=== PATIENT | male | born 1955 | race Caucasian/White ===

== ENCOUNTER → 2017-06-10 | Outpatient (CLI) | payer OTHER ==
[~2017-06-10] MED LIST: AMLO-114 PO; ASPEC325 PO; FRRG PO; HYDR25TA4 PO; LABE1TAB28 PO; LEVE1TAB57 PO; METF1000 PO; OXYC1TAB3 PO
[2017-06-10 13:01] LABS: ESTIMATED AVERAGE GLUCOSE 143 mg/dl; HA1C FLAG Normal (Normal)
[2017-06-10 13:05] LABS: BLOOD UREA NITROGEN 13 mg/dl (7-18); BUN/CREATININE RATIO 15.6 (10-20); CALCIUM 9.3 mg/dl (8.5-10.1); CARBON DIOXIDE 27 mmol/L (21-32); CHLORIDE 103 mmol/L (98-107); CHOLESTEROL 130 mg/dl (0-200); CREATININE 0.85 mg/dl (0.60-1.40); GLUCOSE 118 mg/dl (70-99); POTASSIUM 4.2 mmol/L (3.5-5.1); SODIUM 136 mmol/L (136-145)
[2017-06-10 13:08] LABS: CHOLESTEROL/HDL RATIO 2.5; HDL CHOLESTEROL 53 mg/dl; LDL CHOLESTEROL CALCULATED 61 mg/dl; TRIGLYCERIDES 82 mg/dl (0-150); VERY LOW DENSITY LIPOPROT CALC 16 mg/dl
--- NOTE | 2017-06-21 09:29 | CODING QUERY MEDICAL NECESSITY ---
SUPPORTING DIAGNOSIS NEEDED A supporting diagnosis is required for the test/procedure performed on this patient in order for us to be reimbursed by the patient's insurance. Please provide a supporting diagnosis for the following test/procedure listed below next to the test name along with your signature. *If there is no additional diagnosis for this patient that would support the following test/procedure please document that below next to the test/procedure. Test(s)/Procedure(s) that require a supporting diagnosis: * ([id number]) VITAMIN D ASSAY DIAGNOSIS: DATE OF SERVICE: 06/10/17 Provider Signature: Date: Thank you Jostin Can [facility] Information Management Once completed, please kindly fax back to [phone] For questions please call [phone]
== END | disposition home or self-care (01) ==
LOC: C.LABPVFM 10:06
PROVIDERS: ATTEND Nurse Practitioner
DX: I10 Essential (primary) hypertension (principal); E11.9 Type 2 diabetes mellitus without complications; R41.3 Other amnesia; G62.9 Polyneuropathy, unspecified; M79.1 Myalgia

== ENCOUNTER → 2017-12-23 | Outpatient (CLI) | payer OTHER ==
[2017-12-23 18:01] LABS: BLOOD UREA NITROGEN 18 mg/dl (7-18); CALCIUM 9.6 mg/dl (8.5-10.1); CARBON DIOXIDE 26 mmol/L (21-32); CREATININE 1.16 mg/dl (0.60-1.40); GLUCOSE 171 mg/dl (70-99); POTASSIUM 3.7 mmol/L (3.5-5.1); SODIUM 134 mmol/L (136-145)
[2017-12-24 06:42] LABS: HEMOGLOBIN A1C 7.7 % (4.5-5.6)
== END | disposition home or self-care (01) ==
LOC: C.LABPVFM 14:40
PROVIDERS: ATTEND Nurse Practitioner
DX: I10 Essential (primary) hypertension (principal); E11.9 Type 2 diabetes mellitus without complications

== ENCOUNTER 2018-01-17 04:58 | Inpatient (IN) | payer OTHER ==
[2018-01-06 08:01] VITALS: BMI 37.0
--- NOTE | 2018-01-06 08:46 | PAT Medication Instructions ---
Service Date Jan 06, 2018. Current Home Medication List Acetaminophen (Tylenol Arthritis Ext Rel), 1,300 MG PO Q8H PRN for Pain Amlodipine (Norvasc), 10 MG PO QAM Hydrochlorothiazide (Hctz), 25 MG PO QAM Labetalol (Normodyne), 400 MG PO QAM Labetalol (Normodyne), 200 MG PO QPM Metformin Hcl (Glucophage), 1,000 MG PO BID Medication Instructions For Your Scheduled Surgery - Hold the following medications the morning of surgery: Hydrochlorothiazide (Hctz), 25 MG PO QAM - Take the following medications the morning of surgery with a sip of water: Acetaminophen (Tylenol Arthritis Ext Rel), 1,300 MG PO Q8H PRN for Pain (if needed, can be taken up to four hours before surgery) Amlodipine (Norvasc), 10 MG PO QAM Labetalol (Normodyne), 400 MG PO QAM - Take the following medications as scheduled the night before surgery: Acetaminophen (Tylenol Arthritis Ext Rel), 1,300 MG PO Q8H PRN for Pain (if needed) Labetalol (Normodyne), 200 MG PO QPM Metformin Hcl (Glucophage), 1,000 MG PO BID If you have any questions please call us at [phone] or [phone] or [phone]
--- NOTE | 2018-01-06 09:26 | DIAGNOSTIC IMAGING REPORT ---
CHEST 2 VIEWS ROUTINE CLINICAL HISTORY: Preoperative evaluation. COMPARISON STUDY: Chest radiograph June 19, 2015. FINDINGS: Incidental note is made of an old left ninth rib fracture. Lung volumes are normal. There is no pneumothorax or pleural effusion. Pulmonary vascularity is normal. Cardiac size is normal. Mediastinal contours are normal. There is no consolidation. IMPRESSION: No acute cardiopulmonary findings. Electronically signed by: Kin Aburto M.D. 01/06/2018 9:25 AM Dictated Date/Time: 01/06/2018 9:24 AM
[2018-01-06 10:19] LABS: BASO % 0.7 %; BASO ABS # 0.05 K/uL (0-0.2); EOS % 1.6 %; EOS ABS # 0.12 K/uL (0-0.5); HEMATOCRIT 43.7 % (42-52); HEMOGLOBIN 15.7 g/dL (14.0-18.0); IG# 0.02 K/uL (0.00-0.02); LYMPH ABS # 1.65 K/uL (1.2-3.4); MEAN CELL VOLUME 88.6 fL (80-100); MEAN CORPUSCULAR HEMOGLOBIN 31.8 pg (25-34); MEAN CORPUSCULAR HGB CONC 35.9 g/dl (32-36); MEAN PLATELET VOLUME 8.9 fL (7.4-10.4); NEUT % 67.4 %; NEUT ABS # 5.05 K/uL (1.4-6.5); PLATELET COUNT 319 K/uL (130-400); RED CELL DISTRIBUTION WIDTH CV 13.1 % (11.5-14.5); RED CELL DISTRIBUTION WIDTH SD 42.6 fL (36.4-46.3); WHITE BLOOD COUNT 7.49 K/uL (4.8-10.8)
[2018-01-06 10:34] LABS: PTT PATIENT 26.8 SECONDS (21.0-31.0)
[2018-01-06 10:35] LABS: CALCIUM 9.6 mg/dl (8.5-10.1); CREATININE 0.99 mg/dl (0.60-1.40); POTASSIUM 3.9 mmol/L (3.5-5.1)
[2018-01-06 10:38] LABS: HEMOGLOBIN A1C 7.9 % (4.5-5.6)
--- NOTE | 2018-01-11 14:27 | HISTORY & PHYSICAL EXAMINATION ---
DATE OF ADMISSION: 01/17/2018 CHIEF COMPLAINT: Right knee pain. HISTORY OF PRESENT ILLNESS: A 62-year-old gentleman status post a left knee replacement, skin tag removal, a little over 2 years ago. He has done well from his left knee standpoint, but continues to be bothered by persistent progressive increasing pain in his right knee. He described it has just gotten worse. The more he walks, the more it hurts. Pain is mostly medial. He has nighttime pain. He started to limit his activities due to his knee pain. He would like to have his right knee fixed. Of note, the patient does have a history of a stroke before his previous surgery without any real residual sequelae. He has some memory issues and that is it. PAST MEDICAL HISTORY: 1. Hypertension. 2. Hemorrhagic stroke. 3. Diabetes for 8-9 years. 4. Arthritis. 5. Obesity with a BMI of 38. 6. Kidney stones. PAST SURGICAL HISTORY: Include: 1. Left knee replacement on 07/15/2015. 2. Craniotomy. ALLERGIES: None. CURRENT MEDICINES: Include: 1. Metformin 1000 mg twice a day. 2. Labetalol. 3. Amlodipine. 4. Hydrochlorothiazide. 5. Keppra 100 mg twice a day. SOCIAL HISTORY: A 62-year-old male. He is . He is from [place]. Does not smoke. FAMILY HISTORY: Noncontributory. REVIEW OF SYSTEMS: Taken from this hemorrhagic stroke. No residual sequelae other than some memory issues. He was cleared for his other surgery and allowed to take 81 mg of aspirin twice a day. PHYSICAL EXAMINATION: GENERAL: Reveals a healthy, pleasant middle-aged male. Looks to be in pretty good health. HEENT: Benign. NECK: Supple. No lymphadenopathy. LUNGS: Clear to auscultation. HEART: Regular rate and rhythm. ABDOMEN: Soft, nontender, nondistended. EXTREMITIES: Grossly neurovascularly intact except as follows. Examination of the right knee reveals patient walks with slight varus alignment to his knee. He is tender over the medial joint line. Small knee effusion. Range of motion is 5-120. No instability. X-RAYS: X-ray of the right knee reviewed. It shows advanced right knee DJD. He has got a complete loss of his medial joint space because of subchondral sclerosis. The left knee replacement looks to be in good position. ASSESSMENT: A 62-year-old male with history of hemorrhagic stroke in the past and now 2-1/2 years out from left knee replacement with advanced right knee degenerative joint disease. He would like to have his right knee replaced. PLAN: We will take him to the operating room and do a right total knee replacement. The risks and benefits of this procedure were explained to the patient including, but not limited to DVT, PE, , infection, neurological injury, vascular injury, bleeding problem, pain, limited range of motion, stiffness, failure to relieve symptoms, incomplete relief of symptoms, need for further surgery in the future, fracture, leg length inequality, nerve palsy, etc. The patient understands and desires to proceed. Informed consent was obtained. We did get clearance from his neurosurgeon at [facility] before his last surgery to take an aspirin twice a day. We will plan on doing this for 6 weeks postop again. We will use a little bit lower doses as we have gone to 81 mg a day. He will need to take his labetalol in the morning of surgery. Plan to be discharged to home using [facility] home health program and his 's assistance. PAYTON
[~2018-01-17] VITALS: Ht 180.3 cm; Wt 122.0 kg
[2018-01-17] VITALS (10 sets, daily range): BP systolic 108–144; BP diastolic 64–82; PULSE 64–84; TEMP 36.5–37.3; O2SAT 94–98; Ht 180.3 cm; Wt 122.0 kg
[~2018-01-17 04:58] MED LIST changes: +ACET1TAB84 PO; -ASPEC325 PO; -FRRG PO; -LEVE1TAB57 PO; -OXYC1TAB3 PO
[2018-01-17] MEDS ORDERED: FAMOTIDINE 20 MG TAB PO SCH (06:00)
[2018-01-17] MEDS ORDERED: LACTATED RINGER'S 1000ML 500 ML IV SCH (06:00)
[2018-01-17] MEDS ORDERED: CEFAZOLIN 3000MG IV PUSH 22.5 ML IV SCH (06:00)
[2018-01-17] MEDS ORDERED: METOCLOPRAMIDE HCL 10 MG TAB PO SCH (06:00)
[2018-01-17] MEDS ORDERED: NSS 1000ML IV SCH (06:00)
[2018-01-17] MEDS ORDERED: LACTATED RINGER'S 1000ML IV SCH (06:00)
[2018-01-17] MEDS ORDERED: GABAPENTIN 600 MG PO SCH (06:00)
[2018-01-17] MEDS ORDERED: SCOPOLAMINE 1.5 MG TDSY TD SCH (06:00)
[2018-01-17] MEDS ORDERED: ACETAMINOPHEN 500 MG TAB PO SCH (06:00)
[2018-01-17] MEDS ORDERED: LACTATED RINGER'S 1000ML 1,000 ML IV SCH (06:00)
[2018-01-17] MEDS ORDERED: BUPIVACAINE LIPOSOME 266 MG, BUPIVACAINE/EPINEPHRINE INJ 50 ML, SODIUM CHLORIDE 0.9% PF... INFIL SCH ×3 (06:00)
[2018-01-17] MEDS ORDERED: ROPIVACAINE 0.5% 5 MG/ML 30 ML VIAL ONE (06:23)
[2018-01-17] MEDS ORDERED: BUPIVACAINE 0.5 % 5 MG/1 ML PF 10ML VIAL ONE (06:23)
[2018-01-17] MEDS ORDERED: BUPIVACAINE LIPOSOME 1/3% 266 MG/20 ML VIAL INFIL ONE (06:35)
[2018-01-17] MEDS ORDERED: SODIUM CHLORIDE 0.9% PF 50 ML VIAL ONE (06:35)
[2018-01-17] MEDS ORDERED: BACITRACIN 50000 UNIT VIAL ONE (06:35)
[2018-01-17] MEDS ORDERED: EpINEphrine INJ 1MG/ML AMP 1 MG/ML AMP ONE (06:36)
[2018-01-17] MEDS ORDERED: BUPIVACAINE 0.25% 30 ML VIAL ONE (06:36)
[2018-01-17] MEDS ORDERED: NURSING VERBAL MED ORDER STA (06:37)
[2018-01-17] MEDS ORDERED: MIDAZOLAM HCL 1 MG/ML 2ML VIAL ONE (06:39)
[2018-01-17] MEDS ORDERED: FENTANYL CITRATE INJ 50 MCG/1 ML 2 ML VIAL ONE (06:40)
[2018-01-17] MEDS ORDERED: LIDOCAINE HCL 2% 2 ML VIAL (20MG/ML) ONE (06:44)
[2018-01-17] MEDS ORDERED: PROPOFOL IV EMULSION 10 MG/ML 20 ML VIAL IV ONE (06:44)
[2018-01-17] MEDS ORDERED: ONDANSETRON INJ 2 MG/ML 2 ML VIAL ONE (06:44)
--- NOTE | 2018-01-17 06:48 | History & Physical Bridge Note ---
H&P Re-Evaluation Bridge Note: I have examined the patient, reviewed the History & Physical and in the interval since the performance of the History & Physical I have noted the following changes of clinical significance: No changes noted
[2018-01-17] MEDS ORDERED: TRANEXAMIC ACID INJ 1,000 MG x 1 Bag Preop IV SCH ×2 (07:00)
[2018-01-17] MEDS ORDERED: ALBUTEROL HFA INHALER 8.5 GM INH ONE (07:27)
--- NOTE | 2018-01-17 08:47 | [facility] Post Operative Brief Note ---
Immediate Operative Summary Operative Date Jan 17, 2018. Pre-Operative Diagnosis Advanced Right Knee Degenerative Joint Disease Post-Operative Diagnosis Advanced Right Knee Degenerative Joint Disease Procedure(s) Performed Right Total Knee Arthroplasty Surgeon Dr. Zhao Bag Repairer Surgeon(s) JOSÉ MIGUEL Carreon Estimated Blood Loss 50 ml Findings Consistent with Post-Op Diagnosis Fluids (cc crystalloids) 1100 cc Specimens A. Right Knee Bone and Tissue Drains None Anesthesia Type MAC Spinal Regional Complication(s) none Disposition Accompanied Pt To Recover: no Disposition: Recovery Room / PACU
[2018-01-17] MEDS ORDERED: GLUCOSE 40% GEL 15 GM TUBE PO PRN (09:00)
[2018-01-17] MEDS ORDERED: BISACODYL 10 MG SUPP PR PRN (09:00)
[2018-01-17] MEDS ORDERED: DiphenhydrAMINE HCL 50 MG/ML VIAL IV PRN (09:00)
[2018-01-17] MEDS ORDERED: GLUCAGON FOR INJ 1 MG VIAL SQ PRN (09:00)
[2018-01-17] MEDS ORDERED: SILVER SULFADIAZINE 1% CR 50 GM JAR EXT PRN (09:00)
[2018-01-17] MEDS ORDERED: MoRPHine SULFATE 2 MG/ML CARP IV PRN (09:00)
[2018-01-17] MEDS ORDERED: CEFAZOLIN IV 2,000 MG in DEXTROSE 5% 50ML 50 ML IV SCH (09:00)
[2018-01-17] MEDS ORDERED: TAMSULOSIN HCL 0.4 MG CAP PO PRN (09:00)
[2018-01-17] MEDS ORDERED: MAGNESIUM HYDROXIDE SUSP 30 ML UDC PO PRN (09:00)
[2018-01-17] MEDS ORDERED: ZOLPIDEM TARTRATE 5 MG TAB PO PRN (09:00)
[2018-01-17] MEDS ORDERED: ONDANSETRON INJ 2 MG/ML 2 ML VIAL IV PRN ×2 (09:00→09:45)
[2018-01-17] MEDS ORDERED: GLUCOSE 10 TABS/TUBE PO PRN (09:00)
[2018-01-17] MEDS ORDERED: METOCLOPRAMIDE HCL INJ 5 MG/ML 2 ML VIAL IV PRN (09:00)
[2018-01-17] MEDS: MULTIVITAMIN TAB PO SCH (09:00)
[2018-01-17] MEDS ORDERED: ALUMINUM/MAGNESIUM/SIMETH (MAALOX MAX) 30 ML UDC PO PRN (09:00)
[2018-01-17] MEDS ORDERED: DEXTROSE 50% 50 ML SYR IV PRN (09:00)
--- NOTE | 2018-01-17 09:23 | DIAGNOSTIC IMAGING REPORT ---
RIGHT KNEE 2 VIEWS History: Right total knee arthroplasty. Degenerative arthritis. Postop. FINDINGS: The patient is status post a right total knee arthroplasty. The hardware is intact. No fracture or dislocation. Skin brant are in place. IMPRESSION: Right total knee arthroplasty. No evidence for hardware complication. Electronically signed by: Ron Harding M.D. 01/17/2018 9:22 AM Dictated Date/Time: 01/17/2018 9:21 AM
--- NOTE | 2018-01-17 09:36 | Anesthesiology Progress Note ---
Anesthesia Post Op Note Date & Time Jan 17, 2018 at 09:36 Vital Signs Pain Intensity: 0 Vital Signs Past 12 Hours Date Time Temp Pulse Resp B/P (MAP) Pulse Ox O2 Delivery O2 Flow Rate FiO2 01/17/18 09:18 68 14 01/17/18 09:18 67 14 96 01/17/18 09:16 114/68 01/17/18 09:13 67 16 95 01/17/18 09:13 66 16 01/17/18 09:10 113/65 01/17/18 09:08 65 13 94 01/17/18 09:08 66 13 01/17/18 09:07 70 16 96 01/17/18 09:07 69 16 01/17/18 09:05 112/72 01/17/18 09:02 63 16 92 01/17/18 09:02 64 16 01/17/18 09:00 109/72 01/17/18 08:57 67 15 01/17/18 08:57 67 15 97 01/17/18 08:55 109/76 01/17/18 08:53 109/68 01/17/18 08:52 66 13 93 01/17/18 08:52 36.9 67 16 109/68 95 Nasal Cannula 4 01/17/18 08:52 65 13 01/17/18 05:41 36.5 70 20 131/81 97 Room Air Notes Mental Status: alert / awake / arousable, participated in evaluation Pt Amnestic to Procedure: Yes Nausea / Vomiting: adequately controlled Pain: adequately controlled Airway Patency, RR, SpO2: stable & adequate BP & HR: stable & adequate Hydration State: stable & adequate Anesthetic Complications: no major complications apparent
--- NOTE | 2018-01-17 09:42 | OPERATIVE REPORT ---
DATE OF OPERATION: 01/17/2018 SURGEON: Garett Zhao MD NATIONAL INSURANCE OFFICER: JOSÉ MIGUEL Carreon PREOPERATIVE DIAGNOSIS: Right knee degenerative joint disease. POSTOPERATIVE DIAGNOSIS: Same. PROCEDURE PERFORMED: Right cemented posterior stabilized total knee arthroplasty. COMPLICATIONS: None. ESTIMATED BLOOD LOSS: 50 mL. FLUID REPLACEMENT: 1100 mL crystalloid fluid replacement. TOURNIQUET TIME: 54 minutes at 300 mmHg. ANESTHESIA: Spinal with adductor canal block. DRAINS: None. SPECIMENS: Right knee sent for pathology. OPERATIVE INDICATIONS: The patient is a 62-year-old gentleman who has had a long history of bilateral knee pain and discomfort and DJD. He underwent a left knee replacement about 2-1/2 years ago and has done well from this. Over the past several years, he developed increasing and progressive pain in his right knee, unresponsive to conservative care. He elected to proceed with operative treatment. OPERATIVE FINDINGS: Operative findings were advanced right knee DJD. He had extensive grade 4 change of the medial femoral condyle and medial tibial plateau with eburnation. He had pretty extensive patellofemoral grade 4 changes as well. The lateral compartment was pretty well spared. He has varus deformity to his knee and about a 10 degree flexion contracture. OPERATIVE IMPLANTS: Operative implants consisted of: 1. Biomet Vanguard size 70 right posterior stabilized femoral component. 2. Biomet size 75 tibial tray. 3. A 12 mm posterior stabilized polyethylene insert. 4. A 34 x 8.5 all poly patella. OPERATIVE PROCEDURE: The patient taken to the operating room, identified and placed on the operating table in supine position. All contact areas were appropriately padded. IV antibiotics were provided by anesthesia team. A spinal anesthetic and adductor canal block had been provided in the holding area. A Naranjo catheter was placed in sterile fashion. Right thigh tourniquet was then placed and the right lower extremity was then prepped and draped in usual sterile fashion. The right leg was elevated examined with Esmarch and tourniquet was placed at 300 mmHg. An anterior approach of the right knee was then performed through a longitudinal incision centered over the patella. Sharp dissection carried through subcutaneous tissue down to the level of the extensor mechanism. A medial parapatellar arthrotomy incision was made. Some subperiosteal dissection was carried out medially. The fat pad resected from beneath the patellar tendon. The lateral patellofemoral ligament was released. Patella was everted and knee was flexed. The osteophytes were taken off the distal femur. The ACL and PCL were then released from the distal femur. The tibia subluxated anteriorly. The external tibial alignment jig was then placed in the anterior face of the tibia and adjusted to 16 mm medially. Proximal tibial cut was then made to remove about 2 mm of bone from the most deficient aspect of the medial tibial plateau. Some osteophytes were taken off medial and posteromedially. Tibia size was size 75. Attention was then drawn to the femur. The distal femur was entered with a sharp drill. The intramedullary canal was suctioned. A right 6 degree valgus cutting guide was placed. Distal femoral cutting block was pinned in place. The distal femoral cut was made to take an additional 3 mm of bone off the distal femur. The femur was then sized to a size 70. This was downsized slightly. The AP cutting block was pinned parallel to the epicondylar axis, which was 3 degrees of external rotation. The anterior cut, anterior chamfer, posterior cut, posterior chamfer cuts were made. Box cutting guide was placed and adjusted slightly laterally. The box cut was made. The knee was flexed. The remnants of the medial and lateral menisci were excised. The osteophytes were taken off the posterior aspect of the femur. Trial femoral component was placed. Tibial tray was pinned in maximum external rotation and drill and stem punch were used to create defect in proximal tibia for the tibial tray. The knee was then trialed and the 12 mm insert fit most appropriately. Attention was then drawn to the patella. The patella was cleaned of all soft tissues. Patella thickness measured 24 mm in thickness, cut down to 14. It was sized to a size 34 patella. Lug holes were drilled for 34 patella. Lateral osteophyte was removed. Patella button was placed. Knee was taken through range of motion and patella tracked nicely with no thumbs test. Attention was then drawn toward placement of the permanent components. All trial components removed. Bone plug was placed in the distal femur to limit blood loss. A double batch of Palacos G cement was mixed. A right size 70 posterior bifemoral component, size 75 tibial tray, a 12 mm posterior stabilized polyethylene insert, and a 34 x 8.5 all poly patella then cemented in place. Knee was brought into full extension until cement hardened. A final cement check was then performed. Pericapsular tissues were injected with a total of 100 mL of combination of 20 mL Exparel, 30 mL normal saline, 50 mL of 0.25% Marcaine with epinephrine. The patient did receive 1 gram of tranexamic acid. The tourniquet was then let down for a final tourniquet time of 54 minutes. Hemostasis was assured using electrocautery. The wound was once again irrigated. The extensor mechanism was then closed with combination of #1 PDS suture and #1 Vicryl suture in [id number] fashion. The extensor mechanism was checked and found to be intact. Subcutaneous tissue was then closed with #2 Dexon suture in buried interrupted fashion. Skin was closed with skin brant. Leg was then cleaned and dried and a sterile dressing of Xeroform, 4 x 4, sterile cast padding and Jun bandage were applied. The patient then transferred to the recovery room in stable condition. The patient tolerated the procedure with no complications. All needle and sponge counts were correct at the end of the operation. I attest to the content of the Intraoperative Record and any orders documented therein. Any exception s are noted below.
[2018-01-17] MEDS ORDERED: EpHEDrine SULFATE INJ 50 MG/ML AMP IV PRN (09:45)
[2018-01-17] MEDS ORDERED: ATROPINE SULFATE 0.1 MG/ML 5ML SYR IV PRN (09:45)
[2018-01-17] MEDS ORDERED: HYDROmorphone INJ 2 MG/ML SYR/VIAL IV PRN (09:45)
[2018-01-17] MEDS ORDERED: PHENYLEPHRINE 100MCG/ML 5ML SYR IV PRN (09:45)
[2018-01-17] MEDS: SODIUM CHLORIDE 0.9% 1000ML 1,000 ML IV SCH ×3 (10:52→23:36)
[2018-01-17] MEDS: OXYCODONE HCL IR 5 MG TAB (IMMEDIATE RELEASE) PO PRN ×2 (11:36→16:01)
[2018-01-17] MEDS: KETOROLAC TROMETHAMINE 30 MG/ML VIAL IV. SCH ×3 (11:36→23:36)
[2018-01-17] MEDS: HYDROCHLOROTHIAZIDE 25 MG TAB PO SCH (12:00)
[2018-01-17] MEDS: FERROUS GLUCONATE 324 MG TAB PO SCH ×2 (12:56→18:07)
[2018-01-17] MEDS: INSULIN HUMAN REGULAR SC SCH ×3 (13:00→21:34)
[2018-01-17] MEDS: CEFAZOLIN IV 2,000 MG in SYRINGE 0 ML IV SCH ×2 (13:19→21:35)
[2018-01-17] MEDS: ACETAMINOPHEN 500 MG TAB PO SCH ×2 (13:20→21:31)
[2018-01-17] MEDS ORDERED: TRANEXAMIC ACID INJ 1,000 MG in SODIUM CHLORIDE 0.9% 100ML 100 ML IV SCH (15:00)
[2018-01-17] MEDS: CHECK SCOPOLAMINE PATCH PLACEMENT SCH ×2 (15:32→23:35)
--- NOTE | 2018-01-17 15:38 | PROGRESS NOTE ---
DATE: 01/17/2018 SUBJECTIVE: A 62-year-old gentleman postop from a right knee replacement. He is doing well. Quite a bit of pain earlier, but now much better that he got some pain medicines. He is hungry and eating his lunch. He looks comfortable. OBJECTIVE: VITAL SIGNS: Temperature is 36.7. Vital signs stable. PHYSICAL EXAMINATION: GENERAL: Reveals a healthy, pleasant, middle-aged male. He is sitting up in bed and eating lunch. LUNGS: Clear to auscultation. HEART: Regular rate and rhythm. ABDOMEN: Soft, nontender, nondistended. EXTREMITIES: Grossly neurovascularly intact except as follows. Examination of the right leg reveals the dressing to be clean, dry, and intact. He can dorsiflex and plantarflex his foot appropriately. He is neurologically intact. X-RAYS: X-ray of the right knee from recovery room were reviewed. Shows a right cemented posterior stabilized total knee arthroplasty. Components looked to be in good position. No signs of problems. ASSESSMENT: A 62-year-old gentleman with a history of a hemorrhagic stroke in the past with minimal sequelae postop from a right knee replacement, doing pretty well. He is also a diabetic. His pain is controlled. He is neurologically intact. PLAN: 1. DVT prophylaxis including thigh high TEDs, SCDs, and will put on 1 baby aspirin/81 mg twice a day which has been okayed by his neurosurgeon at [facility]. 2. PT, OT. Weight bear as tolerated. Right total knee protocol. 3. Pain control, doing well with current pain regimen. 4. IV antibiotics x24 hours. 5. Disposition: Plan to discharge to home likely with some home health once adequately recovered.
[2018-01-17] MEDS: DOCUSATE SODIUM 100 MG CAP PO SCH (21:26)
[2018-01-17] MEDS: ASPIRIN 81 MG ECTAB PO SCH (21:27)
[2018-01-17] MEDS: SENNA 8.6 MG TAB PO SCH (21:27)
[2018-01-17] MEDS: LABETALOL HCL 200 MG TAB PO SCH (21:29)
[2018-01-17] MEDS: TAPENTADOL ER 50 MG TABCR PO SCH (21:35)
[2018-01-18 03:32] VITALS: BP 117/67; PULSE 72; TEMP 37.4; O2SAT 95
[2018-01-18] MEDS: KETOROLAC TROMETHAMINE 30 MG/ML VIAL IV. SCH ×4 (05:51→23:45)
[2018-01-18] MEDS: ACETAMINOPHEN 500 MG TAB PO SCH ×3 (05:51→20:50)
[2018-01-18] MEDS ORDERED: TRANEXAMIC ACID INJ 1,000 MG x 1 Bag Preop IV SCH ×2 (06:00)
[2018-01-18] MEDS: SODIUM CHLORIDE 0.9% 1000ML 1,000 ML IV SCH (06:16)
[2018-01-18 06:45] LABS: HEMATOCRIT 38.5 % (42-52); HEMOGLOBIN 13.5 g/dL (14.0-18.0); MEAN CELL VOLUME 89.3 fL (80-100); MEAN CORPUSCULAR HEMOGLOBIN 31.3 pg (25-34); MEAN CORPUSCULAR HGB CONC 35.1 g/dl (32-36); MEAN PLATELET VOLUME 8.6 fL (7.4-10.4); PLATELET COUNT 263 K/uL (130-400); RED CELL DISTRIBUTION WIDTH CV 13.2 % (11.5-14.5); RED CELL DISTRIBUTION WIDTH SD 43.1 fL (36.4-46.3); WHITE BLOOD COUNT 11.01 K/uL (4.8-10.8)
[2018-01-18 07:07] VITALS: BP 148/92; PULSE 80; TEMP 36.9; O2SAT 91
[2018-01-18 07:23] LABS: CALCIUM 8.7 mg/dl (8.5-10.1); CREATININE 1.03 mg/dl (0.60-1.40); POTASSIUM 4.3 mmol/L (3.5-5.1)
[2018-01-18] MEDS: CHECK SCOPOLAMINE PATCH PLACEMENT SCH ×3 (08:27→23:45)
[2018-01-18] MEDS: FERROUS GLUCONATE 324 MG TAB PO SCH ×3 (08:29→17:57)
[2018-01-18] MEDS: DOCUSATE SODIUM 100 MG CAP PO SCH ×2 (08:30→20:48)
[2018-01-18] MEDS: ASPIRIN 81 MG ECTAB PO SCH ×2 (08:30→20:49)
[2018-01-18] MEDS: MULTIVITAMIN TAB PO SCH (08:30)
[2018-01-18] MEDS: PANTOprazole SOD 40 MG TAB PO SCH (08:31)
[2018-01-18 08:33] VITALS: BP 142/90; PULSE 75
[2018-01-18] MEDS: HYDROCHLOROTHIAZIDE 25 MG TAB PO SCH (08:34)
[2018-01-18] MEDS: AMLODIPINE BESYLATE 5 MG TAB PO SCH (08:34)
[2018-01-18] MEDS: LABETALOL HCL 200 MG TAB PO SCH ×2 (08:36→20:48)
[2018-01-18] MEDS: INSULIN HUMAN REGULAR SC SCH ×4 (08:41→20:57)
[2018-01-18] MEDS: TAPENTADOL ER 50 MG TABCR PO SCH ×2 (08:41→20:57)
[2018-01-18] MEDS: OXYCODONE HCL IR 5 MG TAB (IMMEDIATE RELEASE) PO PRN ×2 (09:50→18:03)
[2018-01-18] MEDS ORDERED: ASPEC81 PO (10:02)
[2018-01-18] MEDS ORDERED: RXC5 PO (10:02)
[2018-01-18] MEDS ORDERED: ACET-24 PO (10:02)
--- NOTE | 2018-01-18 10:55 | Anesthesiology Progress Note ---
Anesthesia Post Op Note Date & Time Jan 18, 2018 at 10:55 Vital Signs Vital Signs Past 12 Hours Date Time Temp Pulse Resp B/P (MAP) Pulse Ox O2 Delivery O2 Flow Rate FiO2 01/18/18 08:33 75 142/90 (107) 01/18/18 08:00 Room Air 01/18/18 07:07 36.9 80 20 148/92 (110) 91 Room Air 01/18/18 03:32 37.4 72 16 117/67 (84) 95 Room Air 01/17/18 23:35 Room Air 01/17/18 23:24 37.3 84 16 115/64 (81) 94 Room Air Notes Mental Status: alert / awake / arousable, participated in evaluation Pt Amnestic to Procedure: Yes Nausea / Vomiting: adequately controlled Pain: adequately controlled Airway Patency, RR, SpO2: stable & adequate BP & HR: stable & adequate Hydration State: stable & adequate Neuraxial Anesthesia: sensory block resolved Anesthetic Complications: no major complications apparent
[2018-01-18 11:16] VITALS: BP 132/79; PULSE 80; TEMP 37.1; O2SAT 96
[2018-01-18 15:12] VITALS: BP 121/69; PULSE 110; TEMP 36.7; O2SAT 96
--- NOTE | 2018-01-18 18:35 | PROGRESS NOTE ---
DATE: 01/18/2018 SUBJECTIVE: A 62-year-old gentleman postop day 1 from right knee replacement. He is doing pretty well. Some pain but manageable. No chest pain or shortness of breath. Not feeling dizzy or lightheaded. OBJECTIVE: VITAL SIGNS: Temperature 37.1. Vital signs stable. GENERAL: Reveals a pleasant, middle-aged male. He is sitting up in bed and eating his dinner. He looks comfortable. EXTREMITIES: Examination of the right leg reveals the dressing to be clean, dry, and intact. Leg is well aligned. He can dorsiflex and plantarflex his foot appropriately. He is neurologically intact. LABORATORY DATA: Hemoglobin 13.5, hematocrit 38.5. Electrolytes are stable. ASSESSMENT: A 62-year-old gentleman postop day 1 from right knee replacement, doing pretty well. Pain is controlled. He is neurologically intact. PLAN: 1. DVT prophylaxis including thigh high TEDs, SCDs, and aspirin twice a day. 2. PT, OT. Weight bear as tolerated. Right total knee protocol. 3. Pain control, doing pretty well with current pain regimen. 4. Disposition: Plan to discharge to home with some home health once adequately recovered.
--- NOTE | 2018-01-18 19:52 | Discharge Instructions ---
Discharge Instructions Date of Service Jan 18, 2018. Admission Reason for Admission: Right Knee Degenerative Joint Disease Discharge Discharge Diagnosis / Problem: Right Knee Replacement Discharge Goals Goal(s): Decrease discomfort, Improve function, Increase independence, Improve disease control, Therapeutic intervention Activity Recommendations Activity Limitations: per Instructions/Follow-up section Weightbearing Status: Right weightbearing . Instructions / Follow-Up Instructions / Follow-Up ACTIVITY RECOMMENDATIONS: Physical Therapy: * You will go to physical therapy three times each week for four to six weeks after your surgery in order to regain your knee range of motion and to retrain your knee to work properly. * It is just as important to make sure you are getting your knee perfectly straight as it is to regain your knee bend. * Taking a pain pill an hour before therapy can help you have a more productive and comfortable therapy session. Home Exercise: * You were shown a series of exercises (heel props, heel slides, etc.) in the hospital. Do these exercises three to four times each day including the exercises you were shown in physical therapy. Walking: * Get up and walk several times each day. For the first four weeks, try not to stand or walk for more than one hour at a time. If you do stand or walk for more than one hour, you will not hurt anything, but your knee and leg will likely swell. * As you feel comfortable, you may change from the walker or crutches to a cane and then to independent walking. MEDICATIONS: New Medicine: * You will likely be taking one or more of these medications: 1. Oxycodone - A quick and shorter-acting pain medication. Take one to two tablets every four to six hours to lessen your pain. 2. Aspirin - Thins your blood to lessen the chance of forming a blood clot. * The most common side effects of pain medicine and iron are nausea and constipation. If nausea or constipation is too much of a problem or if you have any questions about your new medicines or doses, call [facility] at . We will try to help you manage these issues. VERY IMPORTANT TO READ AND REVIEW" Pain: * The immediate post-operative period after knee replacement surgery is often quite painful. * You are given a prescription for pain medicine. You should take it, as directed, when you need it, especially before physical therapy and before going to bed. Pain that interferes with sleep is very common and can last several months. * You will likely need pain medicine for the first four to six weeks. It will not stop all of the pain. The pain will lessen and as you feel better, you may change to milder pain medicine such as Tylenol. * The most common side effects of pain medicine are nausea and constipation, so don't take more than you need. SPECIAL CARE INSTRUCTIONS: TEDs/Elastic Stockings: * The white elastic stockings help limit swelling and prevent blood clots from forming in your legs. The more you wear them, the more they work. * Wear them for six weeks after knee replacement surgery and four weeks after partial knee replacement. Prevention of Infection: * Take antibiotics one hour before any dental cleaning, dental work, urological procedure, gastrointestinal procedure or any invasive surgery in order to prevent your new joint from getting infected. * You may get the antibiotics from the doctor performing the procedure or you may call our office at before and we will call in a prescription to the pharmacy of your choice. Things to Watch For: * Drainage from the incision site that occurs more than one week after your surgery. * Severely increased knee/leg pain or swelling. * Increased redness at the incision site. * Fever above 102 degrees Fahrenheit. * Unusual chest pain or shortness of breath. * Unusual pain or burning with urination. Call [facility] at with any of the above problems or if you have any questions about your medicines or recovery. FOLLOW UP VISIT: Make an appointment to see your doctor for approximately two weeks after surgery for a progress check and staple removal by calling the office at . Current Hospital Diet Patient's current hospital diet: Diabetes Type 2 Diet Discharge Diet Recommended Diet: Diabetes Type 2 Diet Procedures Procedures Performed: Right Total Knee Arthroplasty Pending Studies Studies pending at discharge: no Laboratory Results Hemoglobin A1c Test 01/06/18 08:56 Range/Units Estimated Average Glucose 180 mg/dl Hemoglobin A1c 7.9 H 4.5-5.6 % Medical Emergencies . Who to Call and When: Medical Emergencies: If at any time you feel your situation is an emergency, please call 911 immediately. . Non-Emergent Contact Non-Emergency issues call your: Surgeon . "Provider Documentation" section prepared by Garett Zhao. .
[2018-01-18] MEDS: SENNA 8.6 MG TAB PO SCH (20:49)
[2018-01-18 23:34] VITALS: BP 126/73; PULSE 70; TEMP 37.2; O2SAT 94
[2018-01-19] MEDS: ACETAMINOPHEN 500 MG TAB PO SCH (05:34)
[2018-01-19] MEDS: KETOROLAC TROMETHAMINE 30 MG/ML VIAL IV. SCH (05:34)
[2018-01-19 06:14] VITALS: BP 155/89; PULSE 89; TEMP 37.5; O2SAT 95
[2018-01-19] MEDS: CHECK SCOPOLAMINE PATCH PLACEMENT SCH (07:42)
[2018-01-19] MEDS: MULTIVITAMIN TAB PO SCH (07:45)
[2018-01-19] MEDS: AMLODIPINE BESYLATE 5 MG TAB PO SCH (07:45)
[2018-01-19] MEDS: PANTOprazole SOD 40 MG TAB PO SCH (07:46)
[2018-01-19] MEDS: ASPIRIN 81 MG ECTAB PO SCH (07:46)
[2018-01-19] MEDS: DOCUSATE SODIUM 100 MG CAP PO SCH (07:46)
[2018-01-19] MEDS: FERROUS GLUCONATE 324 MG TAB PO SCH (07:46)
[2018-01-19] MEDS: HYDROCHLOROTHIAZIDE 25 MG TAB PO SCH (07:47)
[2018-01-19] MEDS: LABETALOL HCL 200 MG TAB PO SCH (07:47)
--- NOTE | 2018-01-19 07:49 | PROGRESS NOTE ---
DATE: 01/19/2018 SUBJECTIVE: A 62-year-old gentleman postop day 2 from right knee replacement. He is doing well. Pain is controlled. No chest pain or shortness of breath. Not feeling dizzy or lightheaded. OBJECTIVE: VITAL SIGNS: Temperature 37.5. Vital signs stable. GENERAL: Reveals a healthy, pleasant, middle-aged male. Sitting up in bed and eating breakfast. EXTREMITIES: Examination of the right leg reveals the incision to be clean, dry and intact. Some moderate swelling. No significant drainage. He is neurologically intact. ASSESSMENT: A 62-year-old gentleman postop day 2 from right knee replacement, doing reasonably well. PLAN: 1. DVT prophylaxis including thigh high TEDs, SCDs, and aspirin twice. 2. PT/OT. Weight bear as tolerated. Right total knee protocol. 3. Pain control, doing well with current pain regimen. 4. Disposition: Plan to discharge to home with some home health later today.
[2018-01-19] MEDS: INSULIN HUMAN REGULAR SC SCH (07:53)
[2018-01-19] MEDS: TAPENTADOL ER 50 MG TABCR PO SCH (07:54)
[2018-01-19 09:50] VITALS: BP 155/89; PULSE 89; TEMP 37.5; O2SAT 95
[2018-01-19] MEDS: OXYCODONE HCL IR 5 MG TAB (IMMEDIATE RELEASE) PO PRN (10:23)
== END 2018-01-19 10:39 | disposition home health service (06) | DRG 470 ==
LOC: C.ACU 04:58 → C.3E 06:35 → ENRESERV 09:25
PROVIDERS: ADMIT Orthopaedic Surgery Sports Medicine; ATTEND Orthopaedic Surgery Sports Medicine
PROC: 0SRC0J9 Replacement of Right Knee Joint with Synthetic Substitute, Cemented, Open Approach (ICD-10-PCS; principal; 2018-01-17 07:00)
DX: M17.11 Unilateral primary osteoarthritis, right knee (principal); M21.161 Varus deformity, not elsewhere classified, right knee; M24.561 Contracture, right knee; M25.461 Effusion, right knee; I10 Essential (primary) hypertension; E11.42 Type 2 diabetes mellitus with diabetic polyneuropathy; F17.210 Nicotine dependence, cigarettes, uncomplicated; E66.9 Obesity, unspecified; Z68.38 Body mass index [BMI] 38.0-38.9, adult; Z96.652 Presence of left artificial knee joint; Z86.73 Personal history of transient ischemic attack (TIA), and cerebral infarction without residual deficits; Z79.899 Other long term (current) drug therapy; Z79.84 Long term (current) use of oral hypoglycemic drugs; Z88.8 Allergy status to other drugs, medicaments and biological substances